=== PATIENT | male | born 1985 | race Caucasian/White ===

== ENCOUNTER 2021-11-29 05:31 | Outpatient (CLI) | payer OTHER ==
[~2021-11-29] VITALS: Ht 185.5 cm; Wt 100.0 kg
[2021-11-30] MEDS ORDERED: PARO40TA PO (17:00)
[2021-11-30] MEDS ORDERED: AMIT150T PO (17:00)
[2021-11-30] MEDS ORDERED: PROP80TA3 PO (17:00)
== END 2021-11-30 17:07 | disposition home or self-care (01) ==
LOC: PREOP 05:31
PROVIDERS: ATTEND Surgery
DX: Z01.818 Encounter for other preprocedural examination (principal)

== ENCOUNTER 2021-12-06 09:03 | Day surgery (SDC) | payer OTHER ==
[2021-12-06] VITALS (10 sets, daily range): BP systolic 105–137; BP diastolic 64–105
[~2021-12-06] VITALS: Ht 185.5 cm; Wt 100.0 kg
[~2021-12-06 09:03] MED LIST: AMIT150T PO; PARO40TA PO; PROP80TA3 PO
[2021-12-06] MEDS ORDERED: MIDAZOLAM SYRUP (VERSED) 10MG/5ML UDC PO ONE ×2 (09:40→09:45)
[2021-12-06] MEDS ORDERED: ceFAZolin 2 GM IV Premixed 50 ML IV ONE (09:45)
[2021-12-06] MEDS ORDERED: LACTATED RINGERS 1,000 ML IV PRN (09:45)
--- NOTE | 2021-12-06 10:43 | Progress Note-Pre Operative ---
Pre-Operative Progress Note Date of Available H&P: Nov 12, 2021 Date H&P Reviewed: Dec 06, 2021 Time H&P Reviewed: 10:42 History & Physical: H&P Reviewed, Patient Examed, No changes noted Pre-Operative Diagnosis: lipomas x 3 IMAN PAREKH DO Dec 06, 2021 10:43
[2021-12-06] MEDS ORDERED: LIDOCAINE/EPI 2% 1:200,00 (XYLOCAINE) 20 ML VIAL ONE (10:49)
[2021-12-06] MEDS ORDERED: MIDAZOLAM 5 MG/5 ML (VERSED) VIAL ONE ×2 (10:53→11:15)
[2021-12-06] MEDS ORDERED: MIDAZOLAM 10 MG/2 ML (VERSED) VIAL ONE (11:15)
[2021-12-06] MEDS ORDERED: ONDANSETRON 4 MG/2 ML (SDV) Z0FRAN ONE (11:41)
[2021-12-06] MEDS ORDERED: LIDOCAINE PF 2% 5 ML (XYLOCAINE) VIAL ONE (11:41)
[2021-12-06] MEDS ORDERED: proPOfol 200 MG/20 ML (DIPRIVAN) VIAL IV ONE (11:41)
[2021-12-06] MEDS ORDERED: fentaNYL INJ 100 MCG/2 ML AMP ONE (11:41)
[2021-12-06 13:01] LABS: ALBUMIN 3.8 GM/DL (3.2-4.5); CHLORIDE 104 MMOL/L (98-107); POTASSIUM 4.8 MMOL/L (3.6-5.0); SODIUM 138 MMOL/L (135-145)
[2021-12-06 13:02] LABS: CALCIUM 8.5 MG/DL (8.5-10.1)
[2021-12-06 13:03] LABS: GLUCOSE 124 MG/DL (70-105); TOTAL PROTEIN 6.7 GM/DL (6.4-8.2); TRIGLYCERIDES 537 MG/DL (<150)
[2021-12-06 13:04] LABS: CARBON DIOXIDE 26 MMOL/L (21-32)
[2021-12-06 13:05] LABS: BILIRUBIN,TOTAL 0.4 MG/DL (0.1-1.0)
--- NOTE | 2021-12-06 13:06 | Progress Note-Post Operative ---
Post-Operative Progess Note Surgeon (s)/Carton Lettering Machine Operator (s) Surgeon IMAN PAREKH DO [employer]on Lettering Machine Operator: na Pre-Operative Diagnosis lipomas x 3 Post-Operative Diagnosis same Procedure & Operative Findings Date of Procedure 12/06/21 Procedure Performed/Findings excision of lipomas x 3 Anesthesia Type general Estimated Blood Loss Estimated blood loss (mL): minimal Specimens/Packing Specimens Removed right forearm lipoma left thigh lipoma right lower back lipoma IMAN PAREKH DO Dec 06, 2021 13:06
[2021-12-06 13:07] LABS: ALKALINE PHOSPHATASE 82 U/L (40-136); CREATININE SERUM 1.11 MG/DL (0.60-1.30); GFR ESTIMATED 88
[2021-12-06] MEDS ORDERED: SEVOFLURANE (ULTANE) 15 ML INHAL SOLN ONE (13:07)
[2021-12-06 13:08] LABS: BUN/CREATININE RATIO 14; CHOLESTEROL 228 MG/DL (< 200)
[2021-12-06 13:09] LABS: HDL CHOLESTEROL 24 MG/DL (40-60)
[2021-12-06] MEDS ORDERED: ACHD5005 PO (13:09)
[2021-12-06 13:10] LABS: ALANINE AMINOTRANSFERASE 68 U/L (0-55)
--- NOTE | 2021-12-06 13:12 | Discharge Inst-Simple/Standard ---
Discharge Inst-Standard Discharge Medications New, Converted or Re-Newed RX: Transmitted to Pharmacy Patient Instructions/Follow Up Plan of Care/Instructions/FU: 2 weeks Lindsay Activity as Tolerated: No Discharge Diet: Regular Diet Other Inst to Patient Follow up Appt: Make appointment for 2 week. Instructions: No strenuous activity. May shower in 24 hours, no tub bath or soaking. Use incentive spirometer at home as directed. No Smoking Skin/Wound Care: You have special glue over your incision that will fall off on it's own. Symptoms to Report: Appetite Changes, Extremity Discoloration, Numbness/Tingling, Swelling Increased, Bleeding Excessive, Eyesight Changes, Pain Increased, Urine Color Change, Constipation(Persistent), Fever over 101 degree F, Pain/Pressure in chest, Urinating Difficulty, Cough Up/Vomit Blood, Heart Beat Irreg/Pounding, Pain/Pressure in jaw, Vaginal Bleeding Increase, Cramps in feet or legs, Lightheadedness, Pain/Pressure in shoulder, Diarrhea(Persistent), Memory Changes Suddenly, Questions/Concerns, Weight gain consecutive days, Dizziness/Fainting, Nausea/Vomiting, Shortness of Breath, Weight gain over 2 pounds If questions or concerns contact your physician Or seek help at emergency department. IMAN PAREKH DO Dec 06, 2021 13:12
[2021-12-06 13:18] LABS: BASOPHILS # (AUTO) 0.1 10^3/uL (0.0-0.1); BASOPHILS % (AUTO) 1 % (0-10); EOSINOPHILS # (AUTO) 0.2 10^3/uL (0.0-0.3); EOSINOPHILS % (AUTO) 2 % (0-10); HEMATOCRIT 44 % (40-54); HEMOGLOBIN 15.2 g/dL (13.3-17.7); LYMPHOCYTES # (AUTO) 2.5 10^3/uL (1.0-4.0); LYMPHOCYTES % (AUTO) 31 % (12-44); MEAN CORPUSCULAR HEMOGLOBIN 31 pg (25-34); MEAN CORPUSCULAR HGB CONC 35 g/dL (32-36); MEAN CORPUSCULAR VOLUME 88 fL (80-99); MEAN PLATELET VOLUME 9.9 fL (9.0-12.2); MONOCYTES # (AUTO) 0.8 10^3/uL (0.0-1.0); MONOCYTES % (AUTO) 10 % (0-12); NEUTROPHILS # (AUTO) 4.5 10^3/uL (1.8-7.8); NEUTROPHILS % (AUTO) 55 % (42-75); PLATELET COUNT 309 10^3/uL (130-400); WHITE BLOOD COUNT 8.1 10^3/uL (4.3-11.0)
--- NOTE | 2021-12-06 15:14 | Anesthesia-General Post-Op ---
General Patient Condition Mental Status/LOC: Same as Preop Cardiovascular: Satisfactory Nausea/Vomiting: Absent Respiratory: Satisfactory Pain: Controlled Complications: Absent Post Op Complications Complications None Follow Up Care/Instructions Patient Instructions None needed. Anesthesia/Patient Condition Patient Condition Patient was doing well in day surgery after recovery with no complaints, stable vital signs, no apparent adverse anesthesia problems. He was more somnolent than usual, but that is to be expected d/t the PO and intranasal midazolam that was given preop. No complications reported per nursing. DEXTER SAMUEL DO Dec 06, 2021 15:14
[2021-12-06] MEDS ORDERED: fentaNYL INJ 100 MCG/2 ML AMP IVP ONE (15:15)
[2021-12-06] MEDS ORDERED: ONDANSETRON 4 MG/2 ML (SDV) Z0FRAN IVP PRN (15:15)
--- NOTE | 2021-12-06 22:26 | OPERATIVE REPORT ---
DATE OF SERVICE: 12/06/2021 PREOPERATIVE DIAGNOSIS: Lipomas x3. POSTOPERATIVE DIAGNOSIS: Lipomas x3. PROCEDURE: Excision of lipoma, right forearm, left thigh and right lower back. SURGEON: Iman Montoya DO ANESTHESIA: General. ESTIMATED BLOOD LOSS: Minimal. COMPLICATIONS: None. INDICATIONS: The patient is a 36-year-old male with lipomas that are causing him pain and discomfort. He understands risks and benefits of procedure and wishes to proceed. Consent was signed in the chart. DESCRIPTION OF PROCEDURE: The patient was taken to the operating suite, was prepped and draped in sterile fashion. Timeout was performed. Local anesthetic was infiltrated above the palpable lipoma on the right forearm. A 15 blade scalpel was used to make a small skin incision over the area and blunt dissection was used to dissect around the lipoma and was able to be evacuated. Measurements 2.5 x 2 cm. The skin was then closed using 4-0 Monocryl in a subcuticular fashion. The area was washed and dried and Skin Affix was placed over the incision. Left thigh was then infiltrated with local anesthetic. A #15 blade scalpel was used to make an incision over lipoma was encountered in the subcutaneous tissue. Blunt dissection was around it and this was able to be evacuated. Overall measurement was 6 x 4.5 x 1.5 cm. The subcutaneous tissues were then reapproximated using 3-0 Vicryl. Skin was then closed using 4-0 Monocryl in a subcuticular fashion. The area was washed and dried and Skin Affix was placed over the incision. The patient was repositioned in left lateral right thigh palpable mass on the right lower back. Local anesthetic was infiltrated. A 15 blade scalpel was used to make an incision over it which then blunt dissection was used to remove the lipoma measuring 4 x 2.5 cm. The skin was then closed using 4-0 Monocryl in a subcuticular fashion. The area was washed and dried and Skin Affix was placed over the incision. The patient tolerated procedure well without any complications. He was taken to recovery room in stable condition. RECOMMENDATIONS: The patient will follow up in 2 weeks. Any issues before that be seen at that time. Job ID: [id number] DocumentID: [id number] Dictated Date: 12/06/2021 13:51:49 Automotive Electrician Date: 12/06/2021 22:26:00 Dictated By: IMAN MONTOYA DO
== END 2021-12-06 14:30 | disposition home or self-care (01) ==
LOC: SDC 09:03
PROVIDERS: ATTEND Surgery
DX: D17.21 Benign lipomatous neoplasm of skin and subcutaneous tissue of right arm (principal); D17.24 Benign lipomatous neoplasm of skin and subcutaneous tissue of left leg; D17.1 Benign lipomatous neoplasm of skin and subcutaneous tissue of trunk
CPT/HCPCS: 36415; 80053; 80061; 85025; 87081